=== PATIENT | female | born 1970 | race African-American/Black ===

== ENCOUNTER 2023-06-17 11:39 | Emergency (ER) | payer BC, OTHER ==
[2023-06-17] MEDS ORDERED: Carbamide Peroxide 6.5% Otic Drops 15 ml Bottle EA EAR SCH (12:30)
== END 2023-06-17 14:28 | disposition home or self-care (01) ==
LOC: CSHERS 11:39
DX: H61.22 Impacted cerumen, left ear (principal); E78.00 Pure hypercholesterolemia, unspecified; I10 Essential (primary) hypertension; F17.210 Nicotine dependence, cigarettes, uncomplicated
CPT/HCPCS: 69209

== ENCOUNTER 2023-07-07 14:14 | Emergency (ER) | payer BC ==
[2023-07-07] MEDS ORDERED: Ketorolac Tromethamine 30 MG/ML VIAL ONE (17:17)
== END 2023-07-07 17:13 | disposition home or self-care (01) ==
LOC: CSHERS 14:14
DX: M17.12 Unilateral primary osteoarthritis, left knee (principal); M25.462 Effusion, left knee; E78.00 Pure hypercholesterolemia, unspecified; I10 Essential (primary) hypertension; F17.210 Nicotine dependence, cigarettes, uncomplicated; Z86.73 Personal history of transient ischemic attack (TIA), and cerebral infarction without residual deficits
CPT/HCPCS: 96372; J1885

== ENCOUNTER 2023-11-25 20:29 | Emergency (ER) | payer BC ==
[2023-11-25] MEDS ORDERED: Ibuprofen 200 MG TAB ONE (22:15)
[2023-11-25] MEDS ORDERED: Bicillin LA 1.2 MILLION UNITS/2 ML SYRINGE IM SCH (22:45)
[2023-11-25 23:03] LABS: Influenza A by NAA Not Detected (NotDetected); Influenza B by NAA Not Detected (NotDetected); SARS-CoV-2 NAA Rapid Test Not Detected (NotDetected)
== END 2023-11-25 23:00 | disposition home or self-care (01) ==
LOC: CSHERS 20:29
DX: J02.0 Streptococcal pharyngitis (principal); I10 Essential (primary) hypertension; F17.210 Nicotine dependence, cigarettes, uncomplicated
CPT/HCPCS: 87430; 96372; 99283; J0561

== ENCOUNTER 2024-09-24 11:37 | Emergency (ER) | payer BC, OTHER | END 2024-09-24 12:20 | disposition home or self-care (01) | LOC: CSHERS 11:37 | DX: S93.401A Sprain of unspecified ligament of right ankle, initial encounter (principal); I10 Essential (primary) hypertension; F17.210 Nicotine dependence, cigarettes, uncomplicated; W19.XXXA Unspecified fall, initial encounter | CPT/HCPCS: 99283 ==